=== PATIENT | female | born 1985 | race Caucasian/White ===

== ENCOUNTER → 2019-04-09 | Outpatient (CLI) | payer OTHER ==
[~2019-04-09] MED LIST: ALBU90OI INH; AZIT250 PO; BENZ100A PO; Cleocin HCl300 MG PO; FAMO20 PO; HYDCOR2.5A PR; NITR100CA PO; NYQUIL OTC; Norco 5-325 Ta1 EACH PO; Percocet 5-3251 EACH PO; SPACE CHAMBER1 EACH MC; TRAM50 PO; Zithromax250 MG PO
[2019-04-13 14:07] LABS: HPV 16 Negative (Negative); HPV 18 Negative (Negative); HPV OTHER HR TYPES Negative (Negative)
== END ==
LOC: LAB SHORT 17:59 → LAB 17:59
PROVIDERS: Nurse Practitioner Family
DX: Z12.4 Encounter for screening for malignant neoplasm of cervix (principal)
CPT/HCPCS: 87070; 87205; 87624; G0145

== ENCOUNTER → 2019-05-03 | Outpatient (CLI) | payer OTHER | LOC: LAB 07:42 → LAB SHORT 07:42 | DX: D22.39 Melanocytic nevi of other parts of face (principal) | CPT/HCPCS: 88305 ==

== ENCOUNTER → 2022-07-17 | Outpatient (CLI) | payer OTHER ==
[2022-07-17 12:32] LABS: U Amphetamine Screen DETECTED; U Methamphetamine Screen DETECTED
[2022-07-17 12:33] LABS: U Barbituate Screen Not Detected; U Benzodiazapine Screen Not Detected; U Buprenorphine Screen Not Detected; U Cannabinoids Screen DETECTED; U Cocaine Screen Not Detected; U Methadone Screen Not Detected; U Opiates Screen Not Detected; U Oxycodone Screen Not Detected; U Phencyclidine Screen Not Detected; U Propoxyphene Screen Not Detected
== END | disposition home or self-care (01) ==
LOC: LAB SHORT 08:30
PROVIDERS: Nurse Practitioner Psychiatric/Mental Health
DX: F90.9 Attention-deficit hyperactivity disorder, unspecified type (principal)